=== PATIENT | male | born 1970 | race African-American/Black ===

== ENCOUNTER 2016-11-04 20:05 | Emergency (ER) | payer OTHER ==
[~2016-11-04] VITALS: Ht 182.9 cm; Wt 105.0 kg
[~2016-11-04 20:05] MED LIST: ASPIRIN81 M1 PO; HYDRALAZINE HCL50 M1 PO; ISOSORBIDE MONO30 M4 PO; LANOXIN125 MC3 PO; NO HOME MEDS
[2016-11-04] MEDS ORDERED: HYDROCHLOROTHIA25 M1 PO (20:33)
[2016-11-04] MEDS ORDERED: COREG25 M1 PO (20:34)
[2016-11-04 21:14] LABS: BASO % 0.2 % (0-2); EOS % 0.7 % (0-7); EOSINOPHIL ABSOLUTE COUNT 0.1 tho/cmm (0.0-0.7); HCT-HEMATOCRIT 44.8 % (36.0-53.5); HGB-HEMOGLOBIN 14.8 gm/dl (13.5-17.0); IMMATURE GRANULOCYTES ABSOLUTE 0.03 tho/cmm (0-0.03); IMMATURE GRANULOCYTES PERCENT 0.3 % (0-0.3); LYMPH % 29.7 % (20-45); LYMPH ABSOLUTE COUNT 3.2 tho/cmm (0.8-4.5); MCH (MEAN CORPUSCULAR HGB) 22.8 pg (28.0-32.0); MEAN PLATELET VOLUME 9.7 cmc (9.4-12.4); MONO % 6.7 % (0-12); MONOCYTE ABSOLUTE COUNT 0.7 tho/cmm (0.0-1.2); NEUTROPHIL ABSOLUTE COUNT 6.7 tho/cmm (1.6-8.0); NEUTROPHIL-AUTOMATED 6.7 tho/cmm (1.6-8.0); NEUTROPHILS % 62.4 % (40-80); PLATELET COUNT 305 tho/cmm (150-450); RED BLOOD COUNT 6.49 mil/cmm (4.40-5.70); RED CELL DISTRIBUTION WIDTH 18.5 % (12.4-16.4); WHITE BLOOD COUNT 10.7 tho/cmm (4.0-10.0)
[2016-11-04 21:26] LABS: ANION GAP 12 mmol/L (0-20); BLOOD UREA NITROGEN 23 mg/dl (6-24); CALCIUM 8.8 mg/dl (8.5-10.5); CARBON DIOXIDE-VENOUS 23 mmol/L (22-32); CHLORIDE 105 mmol/l (96-110); CREATININE 1.67 mg/dl (0.60-1.30); GLUCOSE 119 mg/dL (70-110); SODIUM 136 mmol/L (135-145); eGFR VALUE FOR BLACK 57 mL/Min
== END 2016-11-04 22:44 ==
LOC: EDMED → EDBD 20:05 → EDMED 20:05
PROVIDERS: Emergency Medicine
DX: R42 Dizziness and giddiness (principal); R79.89 Other specified abnormal findings of blood chemistry; I13.0 Hypertensive heart and chronic kidney disease with heart failure and stage 1 through stage 4 chronic kidney disease, or unspecified chronic kidney disease; N18.3 Chronic kidney disease, stage 3 (moderate); I50.9 Heart failure, unspecified; F17.200 Nicotine dependence, unspecified, uncomplicated; Z79.899 Other long term (current) drug therapy